=== PATIENT | female | born 1990 ===

== ENCOUNTER 2023-08-26 12:15 | Inpatient (IN) | payer BC ==
[2023-08-26] MEDS: ELECTROLYTE-148 SOLN 1,000 ML IV SCH (13:45)
[2023-08-26 13:52] VITALS: BMI 35.9
[2023-08-26] MEDS ORDERED: OXYTOCIN 30 UNITS in 0.9% NS 30 UNIT/500 ML INFUS.BAG IVPB ONE (14:11)
[2023-08-26] MEDS: OXYTOCIN 30 UNITS in 0.9% NS 30 UNIT/500 ML INFUS.BAG IVPB SCH (14:15)
[2023-08-26 14:43] LABS: BASO % 0.3 % (0-2.0); EOS % 1.1 % (0-4.5); HEMATOCRIT 38.7 % (32.4-45.2); HEMOGLOBIN 13.3 GM/dL (10.7-15.3); INR 0.96 (0.83-1.09); LYMPH % 15.9 % (8-40); MCH 29.5 pg (25.7-33.7); MCHC 34.4 g/dl (32.0-36.0); MEAN CELL VOLUME 85.9 fl (80-96); MEAN PLT VOLUME 7.9 fl (7.5-11.1); MONO % 8.3 % (3.8-10.2); NEUT % 74.4 % (42.8-82.8); PLATELET COUNT 211 10^3/uL (134-434); PROTHROMBIN TIME (PATIENT) 11.1 SEC (9.7-13.0); RBC 4.51 M/mm3 (3.60-5.2); RDW 16.9 % (11.6-15.6)
[2023-08-26 14:46] LABS: ACTIVATED PTT 27.1 SECONDS (25.2-36.5)
[2023-08-26 15:34] LABS: CALCIUM 8.5 mg/dL (8.5-10.1)
[2023-08-26 15:35] LABS: BLOOD UREA NITROGEN 9.5 mg/dL (7-18)
[2023-08-26 15:38] LABS: CREATININE 0.6 mg/dL (0.55-1.3)
[2023-08-26] MEDS ORDERED: FENTANYL/BUPIVACAINE/NS/PF - PCEA - 50 ML DISP.SYRIN EP ONE (23:22)
[2023-08-26] MEDS ORDERED: NALOXONE HCL 0.4 MG/ML VIAL IVPUSH PRN (23:32)
[2023-08-26] MEDS ORDERED: LIDO 2%/EPI 1:200000 PRESRVFRE (20 ML SDVIAL) ONE (23:33)
[2023-08-26] MEDS ORDERED: BUPIVACAINE HCL/PF 0.25% (2.5MG/ML) 10 ML VIAL ONE (23:33)
[2023-08-26] MEDS: FENTANYL/BUPIVACAINE/NS/PF - PCEA - 50 ML DISP.SYRIN EP SCH (23:50)
[2023-08-27] MEDS ORDERED: ePHEDrine SULFATE 50 MG/1 ML AMPULE ONE (01:02)
[2023-08-27] MEDS ORDERED: SODIUM CHLORIDE 0.9% P/F 10 ML VIAL IJ ONE (01:03)
[2023-08-27] MEDS ORDERED: FENTANYL/BUPIVACAINE/NS/PF - PCEA - 50 ML DISP.SYRIN EP ONE ×5 (04:32→20:54)
[2023-08-27] MEDS: CITRIC ACID/SODIUM CITRATE 30 ML UNIT-DOSE CUP PO ONE (21:30)
[2023-08-27] MEDS ORDERED: ONDANSETRON 4 MG/2 ML VIAL IVPUSH PRN (21:56)
[2023-08-27] MEDS ORDERED: morphine SULFATE/PF 1 MG/2 ML (2cc Syringe - QUVA) ONE (22:02)
[2023-08-27 22:58] LABS: CORD BASE EXCESS -6.1 mmol/L (0-2); CORD HCO3 19.2 mmHg (20-29); CORD PCO2 37.7 mmHg (30-78); CORD pH 7.325 (7.14-7.44)
[2023-08-27 22:58] LABS: CORD HCO3 20.9 mmHg (20-29); CORD PCO2 45.4 mmHg (30-78)
[2023-08-27] MEDS ORDERED: METHYLERGONOVINE MALEATE 0.2 MG/1 ML AMP IM PRN (23:06)
[2023-08-27] MEDS ORDERED: ACETAMINOPHEN 325 MG TABLET (FP) PO PRN (23:06)
[2023-08-28] MEDS ORDERED: OXYTOCIN 20 UNITS in 0.9% NS 20 UNIT/1,000 ML INFUS.BAG IV ONE (01:19)
[2023-08-28] MEDS: OXYTOCIN 20 UNITS in 0.9% NS 20 UNIT/1,000 ML INFUS.BAG IV SCH (01:20)
[2023-08-28] MEDS: CEFAZOLIN SODIUM 2 GM in DEXTROSE 5%-WATER 100 ML IVPB SCH (05:52)
[2023-08-28] MEDS: IBUPROFEN 800 MG/8 ML IJ IVPB PRN (07:37)
[2023-08-28 07:54] LABS: BASO % 0.2 % (0-2.0); EOS % 0.4 % (0-4.5); HEMATOCRIT 29.8 % (32.4-45.2); HEMOGLOBIN 10.1 GM/dL (10.7-15.3); LYMPH % 12.6 % (8-40); MCH 29.4 pg (25.7-33.7); MCHC 34.1 g/dl (32.0-36.0); MEAN CELL VOLUME 86.3 fl (80-96); MEAN PLT VOLUME 8.2 fl (7.5-11.1); MONO % 9.4 % (3.8-10.2); NEUT % 77.4 % (42.8-82.8); PLATELET COUNT 178 10^3/uL (134-434); RBC 3.45 M/mm3 (3.60-5.2); RDW 16.9 % (11.6-15.6); WHITE BLOOD COUNT 10.5 K/mm3 (4.0-10.0)
[2023-08-28] MEDS: ENOXAPARIN NA (PORCINE) 40 MG/0.4 ML DISP.SYRIN SQ SCH (10:55)
[2023-08-28] MEDS ORDERED: oxyCODONE HCL 5 MG TABLET PO PRN (11:06)
[2023-08-28] MEDS: ACETAMINOPHEN 325 MG TABLET (FP) PO PRN (20:39)
[2023-08-28] MEDS: SIMETHICONE 80 MG TAB.CHEW (FP) PO PRN (20:39)
[2023-08-28] MEDS ORDERED: BISACODYL 10 MG SUPP.RECT RC PRN (23:06)
[2023-08-28] MEDS: IBUPROFEN 600 MG TABLET (FP) PO PRN (23:38)
[2023-08-29 13:38] VITALS: RESP 18
[2023-08-29] MEDS: DOCUSATE SODIUM 100 MG CAPSULE (FP) PO PRN (20:26)
[2023-08-29] MEDS: oxyCODONE HCL 5 MG TABLET PO PRN (20:26)
[2023-08-30 06:11] LABS: BASO % 0.5 % (0-2.0); EOS % 2.8 % (0-4.5); HEMATOCRIT 26.1 % (32.4-45.2); MCHC 34.7 g/dl (32.0-36.0); MEAN CELL VOLUME 86.5 fl (80-96); MEAN PLT VOLUME 7.5 fl (7.5-11.1); NEUT % 72.7 % (42.8-82.8); PLATELET COUNT 179 10^3/uL (134-434); RBC 3.02 M/mm3 (3.60-5.2); RDW 16.8 % (11.6-15.6); WHITE BLOOD COUNT 7.8 K/mm3 (4.0-10.0)
[2023-08-30 20:24] VITALS: TEMP 98.1
[2023-08-31 09:11] VITALS: BP 119/82; PULSE 76
[2023-09-04 08:06] LABS: POC NITRAZINE NEG
== END 2023-08-31 15:20 | disposition home or self-care (01) | DRG 788 ==
LOC: JDEL 12:15 → JLDR 13:20 → J3W 08-28 01:40
PROVIDERS: ADMIT Obstetrics & Gynecology; ATTEND Obstetrics & Gynecology
PROC: 0U7C7ZZ Dilation of Cervix, Via Natural or Artificial Opening (ICD-10-PCS; 2023-08-26)
PROC: 10D00Z1 Extraction of Products of Conception, Low, Open Approach (ICD-10-PCS; principal; 2023-08-28)
DX: O62.0 Primary inadequate contractions (principal); O48.0 Post-term pregnancy; O36.63X0 Maternal care for excessive fetal growth, third trimester, not applicable or unspecified; Z3A.40 40 weeks gestation of pregnancy; Z37.0 Single live birth; O90.81 Anemia of the puerperium; D64.9 Anemia, unspecified; O99.73 Diseases of the skin and subcutaneous tissue complicating the puerperium; L89.610 Pressure ulcer of right heel, unstageable; Z87.59 Personal history of other complications of pregnancy, childbirth and the puerperium
CPT/HCPCS: 36415; 36600; 59025; 80048; 82803; 83986-QW; 85025; 85610; 85730; 86780; 86850; 86900; 86901; 88307-TC; 94010